=== PATIENT | female | born 1970 | race Caucasian/White ===

== ENCOUNTER → 2016-12-17 | Outpatient (CLI) | payer OTHER ==
[~2016-12-17] MED LIST: ANAPROX DS550 MG PO; AUGMENTIN 875875 MG PO; BACTRIM DS 8001 TA1 PO; CIPRO250 MG PO; CLARITIN10 MG PO; CLINDAMYCIN HC300 MG PO; HYDROCODONE BIT1 T11 PO; KEFLEX500 MG PO; MIDRIN (DURADR1 CAP PO; MOTRIN800 MG PO; Motrin,Rufen800 MG PO; NKHM; PERCOCET 325 MG1 TA2 PO; PREDNISONE10 MG PO; PYRIDIUM100 MG PO; VICODIN ES 7501 TAB PO; VITAMIN D5000 I3 PO; ZITHROMAX Z PA250 MG PO
[2016-12-17 09:51] LABS: ALBUMIN 3.3 gm/dl (3.1-4.5)
[2016-12-17 09:55] LABS: THYROID STIM HORMONE (HS) 2.1 uIU/ml (0.358-4.75)
== END | disposition home or self-care (01) ==
LOC: LAB 08:54
PROVIDERS: Internal Medicine
DX: E04.2 Nontoxic multinodular goiter (principal); E55.9 Vitamin D deficiency, unspecified

== ENCOUNTER → 2016-12-19 | Outpatient (CLI) | payer OTHER | END | disposition home or self-care (01) | LOC: US 02:45 | DX: E04.2 Nontoxic multinodular goiter (principal) ==

== ENCOUNTER → 2017-01-02 | Outpatient (CLI) | payer OTHER | END | disposition home or self-care (01) | LOC: MAMMO 10:15 | DX: Z12.31 Encounter for screening mammogram for malignant neoplasm of breast (principal) ==

== ENCOUNTER → 2017-01-09 | Outpatient (CLI) | payer OTHER | END | disposition home or self-care (01) | LOC: US 13:41 | DX: N85.2 Hypertrophy of uterus (principal) ==

== ENCOUNTER 2017-02-17 19:26 | Emergency (ER) | payer OTHER ==
[~2017-02-17] VITALS: Ht 162.5 cm; Wt 83.9 kg
[2017-02-17 19:52] VITALS: BP 152/89
== END 2017-02-17 21:39 | disposition home or self-care (01) ==
LOC: ED 19:26
DX: S90.129A Contusion of unspecified lesser toe(s) without damage to nail, initial encounter (principal); W11.XXXA Fall on and from ladder, initial encounter; Y93.89 Activity, other specified; Y92.89 Other specified places as the place of occurrence of the external cause; Y99.8 Other external cause status

== ENCOUNTER → 2017-05-01 | Day surgery (SDC) | payer OTHER ==
[~2017-05-01] VITALS: Ht 162.5 cm; Wt 81.6 kg
--- NOTE | ~2017-05-01 | O ---
[place], [place] OPERATIVE NOTE NAME: THERESA HOOD UNIT #: [id number] ROOM: DOCTOR: LINDSAY JACKSON MD BIRTHDATE: [birth year] DOS: 05/01/2017 GASTROENDOSCOPIC REPORT. INDICATIONS: A 47-year-old patient who has presented with chief complaint of change in bowel habit, liquid stool. ALLERGIES: No known medication. FAMILY HISTORY: Noncontributory. PAST SURGICAL HISTORY: . PAST MEDICAL HISTORY: Iron pills for supportive management. SOCIAL HISTORY: Nonsmoker, nonalcohol consumer. PROCEDURE: Todays' procedure part of investigation is colonoscopy. PREMEDICATION: Versed and Diprivan. SCOPE: Olympus forward-viewing colonoscope 10L video. REPORT: After putting the patient in the left lateral position and after application of lubricant to the scope, the scope was introduced; thereafter, under direct visualization, advanced through the length of colon without difficulty. Tortuosity of the hepatic and splenic flexure was noticed. Base of cecum explored. The ileocecal valve was defined. Photographic series of the base of cecum obtained. Air was gradually withdrawn. The patient extubated, tolerated procedure well. IMPRESSION: Mild tortuosity of hepatic and the splenic flexure, otherwise normal colonoscopic examination. PLAN AND DISCUSSION: An element of IBS is considered in this patient. I will start her on dicyclomine 10 mg 1 every day. High fiber diet. Follow up as outpatient routinely with you in office, p.r.n. visit with us in [facility]. Thank you very much indeed for your kind referral. [place], [place] OPERATIVE NOTE NAME: THERESA HOOD UNIT #: [id number] ROOM: DOCTOR: LINDSAY JACKSON MD BIRTHDATE: [birth year] LINDSAY JACKSON MD CM:OPRECORD:OPERATIVE NOTE [id number] LINDSAY JACKSON MD 05/01/17 1608 interface
[2017-05-01 11:40] VITALS: BP 124/72
[2017-05-01 13:43] VITALS: BP 96/56
[2017-05-01 14:00] VITALS: BP 103/65
[2017-05-01 14:07] VITALS: BP 123/74
[2017-05-01 14:15] VITALS: BP 123/74
== END | disposition home or self-care (01) ==
LOC: SDC 04-28 09:30
DX: K63.89 Other specified diseases of intestine (principal); Z98.890 Other specified postprocedural states

== ENCOUNTER 2017-08-19 00:28 | Emergency (ER) | payer OTHER ==
[~2017-08-19] VITALS: Ht 165.1 cm; Wt 81.6 kg
[2017-08-19 00:37] VITALS: BP 131/61
[2017-08-19] MEDS ORDERED: CLINDAMYCIN HC300 MG PO (00:50)
== END 2017-08-19 01:30 | disposition home or self-care (01) ==
LOC: ED 00:28
DX: K04.7 Periapical abscess without sinus (principal); K02.9 Dental caries, unspecified

== ENCOUNTER 2019-05-17 17:13 | Emergency (ER) | payer OTHER ==
[~2019-05-17] VITALS: Ht 162.5 cm; Wt 86.2 kg
[2019-05-17 17:16] VITALS: BP 133/83
[2019-05-17] MEDS ORDERED: PREDNISONE20 M1 PO (19:50)
[2019-05-17] MEDS ORDERED: ZITHROMAX250 MG PO (19:50)
[2019-05-17] MEDS ORDERED: PROAIR HFA8.5 GM INH (19:50)
== END 2019-05-17 20:00 | disposition home or self-care (01) ==
LOC: ED 17:13
DX: J06.9 Acute upper respiratory infection, unspecified (principal); R91.1 Solitary pulmonary nodule; J02.9 Acute pharyngitis, unspecified

== ENCOUNTER → 2019-06-03 | Outpatient (CLI) | payer OTHER ==
[~2019-06-03] MED LIST changes: +PREDNISONE20 M1 PO; +PROAIR HFA8.5 GM INH; +ZITHROMAX250 MG PO
== END | disposition home or self-care (01) ==
LOC: LAB 11:13
DX: R80.9 Proteinuria, unspecified (principal)

== ENCOUNTER → 2019-06-06 | Outpatient (CLI) | payer OTHER | END | disposition home or self-care (01) | LOC: US 13:19 | DX: E04.2 Nontoxic multinodular goiter (principal); R91.1 Solitary pulmonary nodule ==

== ENCOUNTER → 2019-07-27 | Outpatient (CLI) | payer OTHER | END | disposition home or self-care (01) | LOC: CT 01:13 | DX: K76.89 Other specified diseases of liver (principal) ==

== ENCOUNTER → 2019-08-12 | Outpatient (CLI) | payer OTHER | END | disposition home or self-care (01) | LOC: LAB 16:38 | DX: K52.9 Noninfective gastroenteritis and colitis, unspecified (principal) ==

== ENCOUNTER 2019-08-13 17:03 | Emergency (ER) | payer OTHER ==
[~2019-08-13] VITALS: Ht 162.5 cm; Wt 91.6 kg
[2019-08-13 17:05] VITALS: BP 131/75
[2019-08-13] MEDS ORDERED: AUGMENTIN 875875 MG PO (17:24)
[2019-08-13] MEDS ORDERED: PREDNISONE20 M1 PO (17:24)
== END 2019-08-13 17:45 | disposition home or self-care (01) ==
LOC: ED 17:03
DX: J02.9 Acute pharyngitis, unspecified (principal); Z79.899 Other long term (current) drug therapy; Z79.2 Long term (current) use of antibiotics

== ENCOUNTER 2020-03-07 22:58 | Emergency (ER) | payer OTHER ==
[2020-03-07 23:09] VITALS: BP 144/87
[2020-03-07] MEDS ORDERED: IBU800 MG PO (23:49)
[2020-03-07] MEDS ORDERED: CLEOCIN HCL150 MG PO (23:49)
== END 2020-03-07 23:55 | disposition home or self-care (01) ==
LOC: ED 22:58
DX: K04.7 Periapical abscess without sinus (principal); K02.9 Dental caries, unspecified; K00.0 Anodontia

== ENCOUNTER 2020-12-10 19:17 | Emergency (ER) | payer OTHER ==
[~2020-12-10] VITALS: Ht 165.1 cm; Wt 95.3 kg
[~2020-12-10 19:17] MED LIST changes: +CLEOCIN HCL150 MG PO; +IBU800 MG PO
[2020-12-10 19:44] VITALS: BP 134/81
[2020-12-10 20:05] LABS: BASO # 0.1 10*3/uL (0.0-0.1); BASO % 0.6 % (0.0-1.0); EOS # 0.4 10*3/uL (0.0-0.4); HEMATOCRIT 39.6 % (37.0-47.0); LYMPH # 2.4 10*3/uL (1.3-4.4); LYMPH % 28.8 % (27.0-41.0); MEAN CELL VOLUME 78.9 fl (81.0-99.0); MEAN CORPUSCULAR HGB 24.5 pg (27.0-31.0); MEAN CORPUSCULAR HGB CONC 31.1 g/dl (33.0-37.0); MEAN PLATELET VOLUME 10.1 fl (9.6-12.3); MONO # 0.6 10*3/uL (0.1-1.0); NEUT # 4.9 10*3/uL (2.3-7.9); NEUT % 58.2 % (47.0-73.0); PLATELET COUNT AUTOMATED 292 10*3/uL (130-400); RED BLOOD COUNT 5.02 10*6/uL (4.10-5.10); WHITE BLOOD COUNT 8.4 10*3/uL (4.8-10.8)
[2020-12-10 20:16] LABS: BUN 13 mg/dl (7-24); CHLORIDE 110 mmol/L (98-107); CREATININE 0.78 mg/dL (0.55-1.02); POTASSIUM 3.4 mmol/L (3.5-5.1); SODIUM 141 mmol/L (136-145); URIC ACID 5.3 mg/dL (2.6-6.0)
== END 2020-12-10 22:27 | disposition home or self-care (01) ==
LOC: ED 19:17
PROVIDERS: Emergency Medicine
DX: S60.862A Insect bite (nonvenomous) of left wrist, initial encounter (principal); Z79.899 Other long term (current) drug therapy; Z79.2 Long term (current) use of antibiotics; Z98.890 Other specified postprocedural states; W57.XXXA Bitten or stung by nonvenomous insect and other nonvenomous arthropods, initial encounter; Y93.89 Activity, other specified; Y92.89 Other specified places as the place of occurrence of the external cause; Y99.8 Other external cause status

== ENCOUNTER 2021-04-20 01:45 | Emergency (ER) | payer OTHER ==
[~2021-04-20] VITALS: Ht 162.5 cm; Wt 90.7 kg
[2021-04-20 01:50] VITALS: BP 135/79
[2021-04-20] MEDS ORDERED: TESSALON PERLE100 MG PO (03:42)
== END 2021-04-20 03:54 | disposition home or self-care (01) ==
LOC: ED 01:45
DX: J06.9 Acute upper respiratory infection, unspecified (principal); J02.0 Streptococcal pharyngitis; Z79.899 Other long term (current) drug therapy; Z79.2 Long term (current) use of antibiotics; Z98.890 Other specified postprocedural states

== ENCOUNTER 2021-04-30 12:04 | Emergency (ER) | payer OTHER ==
[~2021-04-30] VITALS: Wt 89.4 kg
[~2021-04-30 12:04] MED LIST changes: +TESSALON PERLE100 MG PO
[2021-04-30 12:14] VITALS: BP 137/88
[2021-04-30 12:32] LABS: BASO # 0.1 10*3/uL (0.0-0.1); BASO % 0.7 % (0.0-1.0); EOS # 0.5 10*3/uL (0.0-0.4); EOS % 5.5 % (1.0-4.0); LYMPH # 1.9 10*3/uL (1.3-4.4); LYMPH % 20.2 % (27.0-41.0); MEAN CELL VOLUME 83.3 fl (81.0-99.0); MEAN CORPUSCULAR HGB 26.4 pg (27.0-31.0); MEAN CORPUSCULAR HGB CONC 31.7 g/dl (33.0-37.0); MEAN PLATELET VOLUME 10.4 fl (9.6-12.3); MONO # 0.4 10*3/uL (0.1-1.0); MONO % 4.5 % (3.0-9.0); NEUT # 6.3 10*3/uL (2.3-7.9); NEUT % 68.8 % (47.0-73.0); PLATELET COUNT AUTOMATED 270 10*3/uL (130-400); RED BLOOD COUNT 5.04 10*6/uL (4.10-5.10); RED CELL DISTRI WIDTH 15.4 % (0-14.5); WHITE BLOOD COUNT 9.2 10*3/uL (4.8-10.8)
[2021-04-30 12:49] LABS: ALBUMIN 3.2 gm/dl (3.1-4.5); ALKALINE PHOSPHATASE 90 U/L (45-117); BUN 6 mg/dl (7-24); CHLORIDE 107 mmol/L (98-107); CREATININE 0.79 mg/dL (0.55-1.02); POTASSIUM 3.6 mmol/L (3.5-5.1); SGOT/AST 36 IU/L (3-35); SGPT/ALT 51 U/L (12-78); SODIUM 141 mmol/L (136-145); TOTAL PROTEIN 7.2 gm/dL (6.4-8.2)
[2021-04-30] MEDS ORDERED: PREDNISONE20 M1 PO (14:31)
== END 2021-04-30 14:50 | disposition home or self-care (01) ==
LOC: ED 12:04
PROVIDERS: Physician Assistant
DX: B27.90 Infectious mononucleosis, unspecified without complication (principal)

== ENCOUNTER → 2021-05-06 | Outpatient (CLI) | payer OTHER ==
[2021-05-06 13:02] LABS: BASO # 0.1 10*3/uL (0.0-0.1); BASO % 0.4 % (0.0-1.0); EOS # 0.4 10*3/uL (0.0-0.4); EOS % 3.7 % (1.0-4.0); HEMATOCRIT 42.2 % (37.0-47.0); LYMPH # 2.5 10*3/uL (1.3-4.4); LYMPH % 21.9 % (27.0-41.0); MEAN CELL VOLUME 83.2 fl (81.0-99.0); MEAN CORPUSCULAR HGB 26.2 pg (27.0-31.0); MEAN CORPUSCULAR HGB CONC 31.5 g/dl (33.0-37.0); MEAN PLATELET VOLUME 9.9 fl (9.6-12.3); MONO # 0.6 10*3/uL (0.1-1.0); MONO % 5.6 % (3.0-9.0); NEUT # 7.8 10*3/uL (2.3-7.9); PLATELET COUNT AUTOMATED 294 10*3/uL (130-400); RED BLOOD COUNT 5.07 10*6/uL (4.10-5.10); RED CELL DISTRI WIDTH 15.7 % (0-14.5); WHITE BLOOD COUNT 11.5 10*3/uL (4.8-10.8)
[2021-05-06 13:17] LABS: ALBUMIN 3.2 gm/dl (3.1-4.5); ALKALINE PHOSPHATASE 86 U/L (45-117); BUN 13 mg/dl (7-24); CHLORIDE 108 mmol/L (98-107); CREATININE 0.75 mg/dL (0.55-1.02); POTASSIUM 3.7 mmol/L (3.5-5.1); SGOT/AST 32 IU/L (3-35); SGPT/ALT 60 U/L (12-78); SODIUM 138 mmol/L (136-145); TOTAL PROTEIN 7.3 gm/dL (6.4-8.2)
== END | disposition home or self-care (01) ==
LOC: LAB 12:31
PROVIDERS: ATTEND Internal Medicine
DX: R05 Cough (principal)

== ENCOUNTER 2021-05-09 23:29 | Emergency (ER) | payer OTHER ==
[~2021-05-09] VITALS: Ht 162.5 cm; Wt 90.7 kg
[2021-05-10 01:48] LABS: BASO # 0.1 10*3/uL (0.0-0.1); BASO % 0.5 % (0.0-1.0); EOS # 0.4 10*3/uL (0.0-0.4); EOS % 3.6 % (1.0-4.0); HEMATOCRIT 40.6 % (37.0-47.0); LYMPH # 2.6 10*3/uL (1.3-4.4); LYMPH % 25.3 % (27.0-41.0); MEAN CELL VOLUME 84.8 fl (81.0-99.0); MEAN CORPUSCULAR HGB 26.3 pg (27.0-31.0); MEAN PLATELET VOLUME 9.9 fl (9.6-12.3); MONO # 0.7 10*3/uL (0.1-1.0); NEUT # 6.5 10*3/uL (2.3-7.9); NEUT % 63.1 % (47.0-73.0); PLATELET COUNT AUTOMATED 265 10*3/uL (130-400); RED BLOOD COUNT 4.79 10*6/uL (4.10-5.10); RED CELL DISTRI WIDTH 15.7 % (0-14.5); WHITE BLOOD COUNT 10.3 10*3/uL (4.8-10.8)
[2021-05-10 02:04] LABS: ALBUMIN 2.9 gm/dl (3.1-4.5); ALKALINE PHOSPHATASE 90 U/L (45-117); BUN 10 mg/dl (7-24); CHLORIDE 110 mmol/L (98-107); CREATININE 0.61 mg/dL (0.55-1.02); SGOT/AST 29 IU/L (3-35); SGPT/ALT 49 U/L (12-78); SODIUM 140 mmol/L (136-145)
[2021-05-10 04:23] VITALS: BP 115/63
== END 2021-05-10 05:20 | disposition home or self-care (01) ==
LOC: ED 23:29
PROVIDERS: Emergency Medicine
DX: J06.9 Acute upper respiratory infection, unspecified (principal)

== ENCOUNTER → 2021-11-25 | Outpatient (CLI) | payer OTHER ==
[2021-11-25 08:34] LABS: BASO # 0.1 10*3/uL (0.0-0.1); BASO % 0.9 % (0.0-1.0); EOS # 0.3 10*3/uL (0.0-0.4); EOS % 4.5 % (1.0-4.0); HEMATOCRIT 36.3 % (37.0-47.0); LYMPH # 2.1 10*3/uL (1.3-4.4); LYMPH % 30.8 % (27.0-41.0); MEAN CELL VOLUME 80.7 fl (81.0-99.0); MEAN CORPUSCULAR HGB 25.3 pg (27.0-31.0); MEAN CORPUSCULAR HGB CONC 31.4 g/dl (33.0-37.0); MEAN PLATELET VOLUME 9.7 fl (9.6-12.3); MONO # 0.5 10*3/uL (0.1-1.0); MONO % 7.3 % (3.0-9.0); NEUT # 3.8 10*3/uL (2.3-7.9); NEUT % 56.1 % (47.0-73.0); PLATELET COUNT AUTOMATED 349 10*3/uL (130-400); RED CELL DISTRI WIDTH 15.5 % (0-14.5); WHITE BLOOD COUNT 6.8 10*3/uL (4.8-10.8)
[2021-11-25 08:55] LABS: ALKALINE PHOSPHATASE 83 U/L (45-117); BUN 8 mg/dl (7-24); CHLORIDE 109 mmol/L (98-107); CREATININE 0.69 mg/dL (0.55-1.02); POTASSIUM 3.5 mmol/L (3.5-5.1); SGOT/AST 32 IU/L (3-35); SGPT/ALT 37 U/L (12-78); SODIUM 142 mmol/L (136-145); TOTAL PROTEIN 7.1 gm/dL (6.4-8.2)
== END | disposition home or self-care (01) ==
LOC: LAB 07:51
PROVIDERS: ATTEND Obstetrics & Gynecology
DX: N92.1 Excessive and frequent menstruation with irregular cycle (principal)

== ENCOUNTER → 2022-05-21 | Outpatient (CLI) | payer OTHER ==
[2022-05-21 13:07] LABS: BASO # 0.1 10*3/uL (0.0-0.1); BASO % 0.9 % (0.0-1.0); EOS # 0.3 10*3/uL (0.0-0.4); EOS % 4.5 % (1.0-4.0); HEMATOCRIT 43.7 % (37.0-47.0); LYMPH # 1.9 10*3/uL (1.3-4.4); LYMPH % 24.7 % (27.0-41.0); MEAN CELL VOLUME 81.8 fl (81.0-99.0); MEAN CORPUSCULAR HGB 25.5 pg (27.0-31.0); MEAN CORPUSCULAR HGB CONC 31.1 g/dl (33.0-37.0); MEAN PLATELET VOLUME 9.7 fl (9.6-12.3); MONO # 0.5 10*3/uL (0.1-1.0); MONO % 6.6 % (3.0-9.0); NEUT # 4.7 10*3/uL (2.3-7.9); PLATELET COUNT AUTOMATED 265 10*3/uL (130-400); RED BLOOD COUNT 5.34 10*6/uL (4.10-5.10); RED CELL DISTRI WIDTH 16.3 % (0-14.5); WHITE BLOOD COUNT 7.5 10*3/uL (4.8-10.8)
[2022-05-21 13:34] LABS: ALKALINE PHOSPHATASE 96 U/L (45-117); BUN 12 mg/dl (7-24); CHLORIDE 110 mmol/L (98-107); CHOLESTEROL 219 mg/dL (<200); CREATININE 0.78 mg/dL (0.55-1.02); LDL CHOLESTEROL 162 mg/dL (9-159); POTASSIUM 4.1 mmol/L (3.5-5.1); SGOT/AST 55 IU/L (3-35); SGPT/ALT 85 U/L (12-78); SODIUM 142 mmol/L (136-145); TOTAL PROTEIN 7.5 gm/dL (6.4-8.2); TRIGLYCERIDES 89 mg/dl (<150)
== END | disposition home or self-care (01) ==
LOC: LAB 12:48
PROVIDERS: ATTEND Internal Medicine Nephrology
DX: E78.00 Pure hypercholesterolemia, unspecified (principal); E04.2 Nontoxic multinodular goiter; D50.0 Iron deficiency anemia secondary to blood loss (chronic); K21.9 Gastro-esophageal reflux disease without esophagitis

== ENCOUNTER → 2022-05-26 | Outpatient (CLI) | payer OTHER | END | disposition home or self-care (01) | LOC: MAMMO 02:45 | PROVIDERS: ATTEND Internal Medicine Nephrology | DX: Z12.31 Encounter for screening mammogram for malignant neoplasm of breast (principal) ==

== ENCOUNTER → 2022-06-09 | Outpatient (CLI) | payer OTHER | END | disposition home or self-care (01) | LOC: US 13:27 | PROVIDERS: ATTEND Internal Medicine Nephrology | DX: E04.2 Nontoxic multinodular goiter (principal) ==

== ENCOUNTER → 2022-10-15 | Outpatient (CLI) | payer OTHER ==
[2022-10-15 13:27] LABS: ALKALINE PHOSPHATASE 88 U/L (46-116); BUN 8 mg/dl (9-23); CHLORIDE 106 mmol/L (98-107); CHOLESTEROL 208 mg/dL (<200); FREE T4 1.05 ng/dl (0.89-1.76); LDL CHOLESTEROL 144 mg/dL (9-159); POTASSIUM 3.8 mmol/L (3.4-5.1); SGPT/ALT 40 U/L (10-49); THYROID STIM HORMONE (HS) 2.007 uIU/ml (0.550-4.780); TOTAL PROTEIN 6.9 gm/dL (6.0-8.0); TRIGLYCERIDES 89 mg/dl (<150)
[2022-10-15 13:54] LABS: VITAMIN D, 25-HYDROXY 21.8 ng/mL (30-100)
[2022-10-16 14:08] LABS: THYROGLOBULIN ANTIBODY <1.0 IU/mL (0.0-0.9)
[2022-10-17 04:06] LABS: THYROID PEROXIDASE (TPO) AB 13 IU/mL (0-34)
== END | disposition home or self-care (01) ==
LOC: LAB 12:25
PROVIDERS: ATTEND Internal Medicine
DX: E04.2 Nontoxic multinodular goiter (principal); E78.5 Hyperlipidemia, unspecified; E55.9 Vitamin D deficiency, unspecified; R73.02 Impaired glucose tolerance (oral); R53.83 Other fatigue

== ENCOUNTER → 2023-03-19 | Outpatient (CLI) | payer OTHER | END | disposition home or self-care (01) | LOC: RAD 11:39 | PROVIDERS: ATTEND Internal Medicine Nephrology | DX: M16.11 Unilateral primary osteoarthritis, right hip (principal) ==

== ENCOUNTER → 2023-09-28 | Outpatient (CLI) | payer OTHER | END | disposition home or self-care (01) | LOC: RAD 15:38 | PROVIDERS: ATTEND Internal Medicine Nephrology | DX: R05.8 Other specified cough (principal); M25.551 Pain in right hip; R06.02 Shortness of breath ==

== ENCOUNTER → 2023-11-02 | Outpatient (CLI) | payer OTHER | END | disposition home or self-care (01) | LOC: MAMMO 10-08 01:46 | PROVIDERS: ATTEND Internal Medicine Nephrology | DX: Z12.31 Encounter for screening mammogram for malignant neoplasm of breast (principal) ==

== ENCOUNTER 2024-03-19 08:20 | Emergency (ER) | payer SELFPAY ==
[~2024-03-19] VITALS: Ht 160 cm; Wt 95.3 kg
[2024-03-19 08:37] VITALS: BP 140/80
[2024-03-19] MEDS ORDERED: MEDROL DOSEPAK4 MG PO (11:43)
[2024-03-19] MEDS ORDERED: AMOX-CLAV 875-1 EACH PO (11:43)
[2024-03-19] MEDS ORDERED: GUAIFENESIN200 MG PO (11:43)
== END 2024-03-19 11:47 | disposition home or self-care (01) ==
LOC: ED 08:20
DX: J02.0 Streptococcal pharyngitis (principal); Z20.822 Contact with and (suspected) exposure to COVID-19; Z98.890 Other specified postprocedural states

== ENCOUNTER 2025-03-09 07:37 | Inpatient (IN) | payer SELFPAY ==
[~2025-03-09] VITALS: Ht 162.5 cm; Wt 95.3 kg
[~2025-03-09 07:37] MED LIST changes: +AMOX-CLAV 875-1 EACH PO; +GUAIFENESIN200 MG PO; +MEDROL DOSEPAK4 MG PO
[2025-03-09 07:52] VITALS: BP 129/88
[2025-03-09 10:23] LABS: BASO # 0.0 10*3/uL (0.0-0.1); BASO % 0.5 % (0.0-1.0); EOS # 0.2 10*3/uL (0.0-0.4); EOS % 5.5 % (1.0-4.0); MEAN CELL VOLUME 84.6 fl (81.0-99.0); MEAN CORPUSCULAR HGB 26.6 pg (27.0-31.0); MEAN PLATELET VOLUME 9.5 fl (9.6-12.3); MONO # 0.5 10*3/uL (0.1-1.0); MONO % 11.6 % (3.0-9.0); NEUT # 2.8 10*3/uL (2.3-7.9); NEUT % 62.7 % (47.0-73.0); NUCLEATED RED BLOOD CELL 0.0 % (0.0-0.0); NUCLEATED RED BLOOD CELL 0.0 10*3/uL (0.0-0.0); PLATELET COUNT AUTOMATED 218 10*3/uL (130-400); RED CELL DISTRI WIDTH 15.0 % (0-14.5)
[2025-03-09 10:41] LABS: BUN 8 mg/dl (9-23)
[2025-03-09] MEDS ORDERED: Albuterol Sulf/Ipratropium 3 ML VIAL NEB ONE (11:00)
[2025-03-09] MEDS ORDERED: AZITHROMYCIN 250 ML IV ONE (11:00)
[2025-03-09] MEDS ORDERED: BISACODYL 10 MG SUPP R PRN (12:50)
[2025-03-09] MEDS ORDERED: BISACODYL 5 MG TAB PO PRN (12:50)
[2025-03-09] MEDS ORDERED: ACETAMINOPHEN 325 MG TAB PO PRN (12:50)
[2025-03-09] MEDS ORDERED: ACETAMINOPHEN 650 MG SUPP R PRN (12:50)
[2025-03-09] MEDS ORDERED: Albuterol Sulf/Ipratropium 3 ML VIAL NEB SCH (12:55)
[2025-03-09 20:00] VITALS: BP 133/68
[2025-03-09] MEDS ORDERED: GUAIFENESIN 600 MG TAB ER PO SCH (22:00)
[2025-03-10] VITALS: BP 115/61
[2025-03-10 06:23] LABS: BASO # 0.0 10*3/uL (0.0-0.1); BASO % 0.1 % (0.0-1.0); EOS # 0.0 10*3/uL (0.0-0.4); EOS % 0.2 % (1.0-4.0); MEAN CELL VOLUME 83.0 fl (81.0-99.0); MEAN CORPUSCULAR HGB 26.8 pg (27.0-31.0); MEAN PLATELET VOLUME 9.9 fl (9.6-12.3); MONO # 0.7 10*3/uL (0.1-1.0); MONO % 8.5 % (3.0-9.0); NEUT # 6.8 10*3/uL (2.3-7.9); NEUT % 80.4 % (47.0-73.0); NUCLEATED RED BLOOD CELL 0.0 % (0.0-0.0); NUCLEATED RED BLOOD CELL 0.0 10*3/uL (0.0-0.0); PLATELET COUNT AUTOMATED 253 10*3/uL (130-400); RED CELL DISTRI WIDTH 14.9 % (0-14.5)
[2025-03-10 06:55] LABS: BUN 12 mg/dl (9-23); FREE T4 1.10 ng/dl (0.89-1.76); LDL CHOLESTEROL 157 mg/dL (9-159); SGPT/ALT 47 U/L (5-49)
[2025-03-10 08:00] VITALS: BP 133/73
[2025-03-10] MEDS ORDERED: Vitamin D 1,000 IU TAB (25 MCG) PO SCH (10:00)
[2025-03-10] MEDS ORDERED: predniSONE 20 MG TAB PO SCH (10:00)
[2025-03-10 12:00] VITALS: BP 131/72
[2025-03-10] MEDS ORDERED: AZITHROMYCIN 250 ML IV SCH (12:00)
[2025-03-10] MEDS ORDERED: ZITHROMAX250 MG PO (13:21)
[2025-03-10] MEDS ORDERED: PREDNISONE50 MG PO (13:21)
== END 2025-03-10 13:56 | disposition home or self-care (01) | DRG 195 ==
LOC: ED 07:37 → 5E 11:17 → EDHOLD 11:17 → 5E 11:27
PROVIDERS: Internal Medicine; Student in an Organized Health Care Education/Training Program; ADMIT Internal Medicine; ATTEND Internal Medicine
DX: J18.9 Pneumonia, unspecified organism (principal); D72.819 Decreased white blood cell count, unspecified; E55.9 Vitamin D deficiency, unspecified; Z79.899 Other long term (current) drug therapy; Z79.01 Long term (current) use of anticoagulants; Z79.2 Long term (current) use of antibiotics; Z98.891 History of uterine scar from previous surgery; Z82.3 Family history of stroke; Z82.49 Family history of ischemic heart disease and other diseases of the circulatory system